=== PATIENT | female | born 1945 | race Two or more races ===

== ENCOUNTER 2022-05-02 08:07 | Inpatient (IN) | payer OTHER ==
[~2022-05-02] VITALS: Ht 152.4 cm; Wt 59.0 kg
[2022-05-02] MEDS ORDERED: CRESTOR20 MG PO (09:50)
[2022-05-02] MEDS ORDERED: PROLIA60 MG/1 ML SQ (09:51)
[2022-05-02] MEDS ORDERED: VITAMIN D PO (09:52)
[2022-05-08] MEDS ORDERED: HYDROXYCHLOROQ200 MG (10:33)
[2022-05-08] MEDS ORDERED: CALCIUM 600 MG1 EA10 (10:33)
[2022-05-08] MEDS ORDERED: CANDESARTAN CIL16 MG (10:33)
[2022-05-08] MEDS ORDERED: PANTOPRAZOLE SO40 MG (10:33)
[2022-05-08] MEDS ORDERED: GENTLE LAXATIVE5 M1 (10:33)
[2022-05-08] MEDS ORDERED: LISINOPRIL5 MG (10:33)
[2022-05-08] MEDS ORDERED: PREDNISONE10 M1 (10:33)
== END 2022-05-11 15:53 | disposition home or self-care (01) | DRG 331 ==
LOC: O/R 05-08 07:19 → SURH 05-08 09:00 → SURG 05-08 22:43
PROVIDERS: ADMIT Colon & Rectal Surgery; ATTEND Colon & Rectal Surgery
PROC: 0DTN4ZZ Resection of Sigmoid Colon, Percutaneous Endoscopic Approach (ICD-10-PCS; 2022-05-08)
PROC: 0DBP4ZZ Excision of Rectum, Percutaneous Endoscopic Approach (ICD-10-PCS; 2022-05-08)
PROC: 0DBM4ZZ Excision of Descending Colon, Percutaneous Endoscopic Approach (ICD-10-PCS; principal; 2022-05-08 10:30)
DX: K57.20 Diverticulitis of large intestine with perforation and abscess without bleeding (principal); K57.32 Diverticulitis of large intestine without perforation or abscess without bleeding; N73.6 Female pelvic peritoneal adhesions (postinfective)